=== PATIENT | female | born 1950 | race African-American/Black ===

== ENCOUNTER 2017-04-23 22:00 | Observation (INO) ==
--- NOTE | 2017-04-23 22:14 | Emergency Department Note ---
Disposition Clinical Impression: Near syncope, JORGE L (acute kidney injury) Nausea & vomiting Qualifiers: Vomiting type: unspecified Vomiting Intractability: unspecified Qualified Code( s): R11.2 - Nausea with vomiting, unspecified Disposition: Admitted As Inpatient Condition: Fair Forms: ED Satisfaction Letter Time of Disposition: 22:53 Nausea/Vomiting/Diarrhea HPI - General Chief complaint: ED Nausea/Vomiting/Diarrhea Stated complaint: Nausea, Weakness Time Seen by Provider: 04/23/17 22:06 Source: patient Mode of arrival: ambulatory Limitations: no limitations Nursing Notes Reviewed: Yes Vital Signs Reviewed: Yes - History of Present Illness HPI Narrative: 66-year-old who had a kidney surgery in [place] couple days ago who is had nausea vomiting this morning he became diaphoretic and near syncope and lay on the floor. Patient was seen here earlier had an evaluation of showed some acute kidney injury and was sent home one home and was feeling worse so she came back. 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 Description of emesis: food contents Associated Abdominal Pain: Yes If pain, Location of pain: diffuse Severity: moderate Quality: cramping Consistency: intermittent Improves with: nothing Worsens with: nonthing Context: other (Kidney surgery has not felt well over the last day or so.) - Related Data Home Medications Medication Instructions Recorded Confirmed Naproxen Sodium [Aleve] 220 mg PO TID PRN 09/27/16 09/27/16 Previous Rx's Medication Instructions Recorded HYDROcodone/Acet 5/325 mg [[place] 1 tab PO Q6H PRN #20 tab 09/27/16 5-325 mg] Ondansetron ODT [Zofran ODT] 4 mg SL Q6HR PRN #20 tab.rapdis 09/27/16 Phenazopyridine HCl [Pyridium] 200 mg PO TIDAC PRN #20 tab 09/27/16 Ciprofloxacin [Cipro] 500 mg PO BID #14 tablet 09/30/16 OxyCODONE/APAP 5/325 [Percocet 1 each PO Q6HR PRN #20 tablet 09/30/16 5/325 MG] HYDROcodone/Acet 5/325 mg [[place] 1 tab PO Q6H PRN #8 tab 11/30/16 5-325 mg] cephALEXin [Keflex] 500 mg PO TID #21 capsule 11/30/16 Allergies Allergy/AdvReac Type Severity Reaction Status Date / Time ketorolac [From Toradol] AdvReac Vomiting Verified 10/04/16 01:00 All systems ED: reviewed and negative except as stated. Constitutional: Denies: fever, chills, weakness, weight change Eyes: Denies: eye pain, eye discharge, vision change ENT ED: Denies: ear pain, throat pain, dental pain, hearing loss, epistaxis, congestion, dysphagia Cardiovascular: Denies: chest pain, palpitations, dyspnea on exertion, edema, syncope Respiratory: Denies: cough, dyspnea, wheezes, hemoptysis, stridor Gastrointestinal: Reports: abdominal pain, nausea, vomiting. Denies: diarrhea, constipation, hematemesis, melena, hematochezia Genitourinary: Denies: dysuria, frequency, hematuria, discharge Musculoskeletal: Denies: back pain, neck pain, arthralgia, myalgia Integumentary: Denies: rash, abrasion, lesions Neurological: Denies: headache, weakness, numbness, paresthesias, confusion, abnormal gait, vertigo Psychiatric: Denies: anxiety, depression, suicidal thoughts, homicidal thoughts , auditory hallucinations, visual hallucinations Endocrine: Denies: fatigue Hematological/Lymphatic: Denies: easy bleeding, easy bruising Allergic/Immunologic: Denies: facial swelling, urticaria Past Medical History - Past Medical History Medical history: Reports: atrial fibrillation, hypertension, kidney stones Surgical history: Reports: other Psychiatric history: Reports: no psych history 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 - Social History Smoking Status: Never smoker Smokeless Tobacco Status: No Alcohol use: Reports: none Drug use: Reports: none Physical Exam - General Limitations: no limitations General appearance: alert, in no apparent distress - Head Head exam: atraumatic, normocephalic, normal inspection - Eye Eye exam: Present: normal appearance, PERRL, EOMI - ENT ENT exam: normal exam, normal oropharynx, mucous membranes moist - Neck Neck exam: Present: normal inspection, full ROM, trachea midline - Chest Chest inspection: Present: normal inspection, symmetric chest wall rise - Respiratory Respiratory exam: Present: normal lung sounds bilaterally - Cardiovascular Cardiovascular exam: Present: regular rate, normal rhythm, normal heart sounds - Abdominal Exam Abdominal exam: Present: soft, tenderness. Absent: distention, guarding, rebound, rigidity - Extremities Exam Extremities exam: Present: normal inspection, full ROM. Absent: tenderness, pedal edema - Expanded Lower Extremity Exam Neurovascular/Tendon exam: Absent: motor deficit, sensory deficit, tendon deficit Gait: not tested/not observed - Back Exam Back exam: Present: normal inspection, full ROM. Absent: tenderness - Neurological Exam Neurological exam: Present: alert, oriented X3 - Psychiatric Psychiatric exam: Present: normal affect, normal mood - Skin Skin exam: Present: warm, dry, intact, normal color Course - Reevaluation(s) Reevaluation #1: 66-year-old female who has a history of nausea vomiting and near syncope. Patient was seen earlier today and discharged home come back with worsening symptoms. Time: 22:51 - Consultations Consultation #1: Discussed with , admit. Time: 22:53 Vital Signs Temperature 98.9 F 04/23/17 22:01 Pulse Rate 87 04/23/17 22:01 Respiratory Rate 16 04/23/17 22:01 Blood Pressure 139/80 04/23/17 22:01 O2 Sat by Pulse Oximetry 97 04/23/17 22:01 Temperature 98.9 F 04/23/17 22:01 Pulse Rate 87 04/23/17 22:01 Respiratory Rate 16 04/23/17 22:01 Blood Pressure 139/80 04/23/17 22:01 O2 Sat by Pulse Oximetry 97 04/23/17 22:01 Oxygen Delivery Oxygen Delivery Room Air
[2017-04-23] MEDS ORDERED: Ondansetron 4 MG/2 ML VIAL IVP ONE (23:13)
[2017-04-23] MEDS: 0.9 % Sodium Chloride 1,000 ML IVC SCH (23:18)
[2017-04-24] MEDS: 0.9 % Sodium Chloride 1,000 ML IVC SCH ×2 (01:57→10:15)
[2017-04-24] MEDS ORDERED: Naloxone 0.4 MG/ML INJ IVP PRN (02:58)
[2017-04-24] MEDS ORDERED: Acetaminophen 325 MG TABLET PO PRN (02:58)
[2017-04-24] MEDS ORDERED: *HR* Promethazine 25 MG/ML VIAL IVP PRN (02:58)
[2017-04-24] MEDS ORDERED: Ondansetron 4 MG/2 ML VIAL IVP PRN ×2 (02:58→10:13)
[2017-04-24] MEDS ORDERED: 0.9 % Sodium Chloride 1,000 ML IVC SCH (03:00)
--- NOTE | 2017-04-24 03:04 | Internal Med History&Physical ---
Date of Encounter: 04/23/17 Time of Encounter: 22:30 Assessment and Plan (1) Near syncope Current visit: Yes Status: Acute will place the pt into Tele for observation Her near syncope seems to most likely due to vaso vagal reaction However pt mentioned she had h/o arrhythmias, so will put her on Tele check serial troponin, so far negative trop reviewed EKG - Showed NSR, No ST T changes noticed. No acute ischemia changes noticed will get 2 D Echo in AM IV hydration (2) Nausea & vomiting Current visit: Yes Status: Acute Possible viral GE no abx needed IV hydration symptomatic and supportive care Qualifiers: Vomiting type: unspecified Vomiting Intractability: intractable Qualified Code(s): R11.2 - Nausea with vomiting, unspecified (3) JORGE L (acute kidney injury) Current visit: Yes Status: Acute Slightly elevated Cr.. Pre renal will give IV fluids avoid nephro toxic meds (4) History of ureter stent Current visit: No Status: Acute recent renal procedure with ureter stent placement stable and clean incision need out pt f/u with urology Internal Medicine - H&P: HPI Chief complaint: near syncope Admitted From: Emergency Dept Plans for Post Hospital Care: Home History of present illness: Ms. Quiroz is a 66 year old female with knwon PMH of Cardiac arrythamias, Renal calculi, for which she recently had Renal procedure and Left ureter stent placed in, now she presented to ER this afternoon with intractable nausea and vomiting, also she almost passed out once this morning. She did have near syncopal episode after attempting to have a bowel movement after being constipated for a couple of days. The patient states she felt very diaphoretic and weak so she laid on the ground. She also c/o intractable nausea and vomiting since this morning, unable to hold any thing down. Denied any sick contacts. Denied any similar symptoms in the family. Past Med Surg Social Fam HX - Past Medical History Medical history: atrial fibrillation, hypertension, kidney stones Psychiatric history: no psych history - Past Surgical History Surgical History: other - Social History Smoking Status: Never smoker Smokeless Tobacco Status: No Alcohol use: none Drug use: none - Family History Mother Adopted: [place]: Meme Quiroz Family Member Ethnicity: Non- Living Status: Age at : 55 Cause of : hodgkins disease Hx Family Cardiac Disorders: No Hx Family Respiratory Disorders: No Hx Family Cancer: Yes Hx Family GI Disorders: No Hx Family Genitourinary Disorders: No Hx Family Endocrine Disorder: No Internal Medicine - H&P: Meds HYDROcodone/Acet 5/325 mg [[place] 5-325 mg] 1 tab PO Q6H PRN #20 tab 09/27/16 [Rx ] Naproxen Sodium [Aleve] 220 mg PO TID PRN 09/27/16 [History] Ondansetron ODT [Zofran ODT] 4 mg SL Q6HR PRN #20 tab.rapdis 09/27/16 [Rx] Phenazopyridine HCl [Pyridium] 200 mg PO TIDAC PRN #20 tab 09/27/16 [Rx] Ciprofloxacin [Cipro] 500 mg PO BID #14 tablet 09/30/16 [Rx] HYDROcodone/Acet 5/325 mg [[place] 5-325 mg] 1 tab PO Q6H PRN #8 tab 11/30/16 [Rx] cephALEXin [Keflex] 500 mg PO TID #21 capsule 11/30/16 [Rx] Lisinopril/Hydrochlorothiazide [Zestoretic 10-12.5 mg Tablet] 20 mg PO DAILY [History] OxyCODONE/APAP 5/325 [Percocet 5/325 MG] 1 each PO Q8HR PRN 04/24/17 [History] 3 Allergy/AdvReac Type Severity Reaction Status Date / Time ketorolac [From Toradol] AdvReac Vomiting Verified 10/04/16 01:00 All Systems PM: A 10-system review of systems was performed and is negative for pertinent findings except as documented above in the HPI. Review of systems: All the systems are reviewed everything is benign except the systems and symptoms I mentioned in the history of present illness - Constitutional Vitals: Temp Pulse Resp BP Pulse Ox 99.5 F 76 12 108/73 96 04/23/17 23:44 04/23/17 23:44 04/23/17 23:44 04/23/17 23:44 04/23/17 23:44 General appearance: Present: A&O X 3, no acute distress - Head Head exam: Present: atraumatic, normal inspection - Neck Neck exam general surgery: Present: supple - Respiratory Respiratory exam: Present: CTAB. Absent: accessory muscle use, rales, rhonchi, wheezes - Cardiovascular Cardiovascular exam: Present: RRR, +S1, +S2. Absent: diastolic murmur, gallop, rubs, systolic murmur - GI/Abdominal GI/Abdominal exam: Present: normal bowel sounds, soft, tenderness (around the recent inisions area). Absent: rebound, rigid Additional comments: clean incisions noticed - Extremities Exam Extremities exam: Absent: calf tenderness, pedal edema, tenderness - Back Exam Back exam: Absent: CVA tenderness (L), CVA tenderness (R) - Neurological Exam Neurological exam: Present: alert, oriented X3 - Psychiatric Psychiatric exam: Present: normal affect, normal mood - Skin Skin exam: Absent: rash
[2017-04-24] MEDS: *HR* Morphine 2 MG/ML SYRINGE IVP PRN ×4 (03:17→20:40)
[2017-04-24 07:12] LABS: BUN/Creatinine Ratio 10 (6-26); Blood Urea Nitrogen 11 mg/dL (7-20); Calcium 8.7 mg/dL (8.6-10.8); Carbon Dioxide 27 mEq/L (19-29); Chloride 107 mEq/L (98-109); Chol/HDL Ratio 2.4 (0-4.9); Cholesterol 151 mg/dL (< 200); Glucose 86 mg/dL (70-99); HDL Cholesterol 63 mg/dL (40-59); LDL Cholesterol,Calculated 70 mg/dL (0-99); Osmolality,Calculated 291 (280-300); Potassium 3.3 mEq/L (3.5-4.5); Sodium 141 mEq/L (136-145); Triglycerides 88 mg/dL (< 150); eGFR For African Americans > 60 (> 60); eGFR For Non-African Americans 50 (> 60)
--- NOTE | 2017-04-24 10:12 | Internal Med Progress Note ---
<Markus Baeza - Last Filed: 04/24/17 10:02> Date of Encounter: 04/24/17 Time of Encounter: 09:45 - Assessment and plan (1) Near syncope Current Visit: Yes Status: Acute Assessment and plan: Patient near-syncope likely result of vasovagal response and dehydration given decreased by mouth in the last few days. EKG was negative and no arrhythmias have been seen on telemetry so far. Serial troponins were negative Will obtain echocardiogram Continue patient on IV hydration (2) Nausea & vomiting Current Visit: Yes Status: Acute Assessment and plan: Nausea and vomiting likely secondary to patient left-sided hydronephrosis and recent kidney procedure Patient states nausea vomiting has been going on for 8 months and likely coincides with duration of hydronephrosis as she has passed multiple stones We will continue IV fluids Symptomatic and supportive care with scheduled Phenergan, when necessary Zofran and when necessary Reglan Qualifiers: Vomiting type: unspecified Vomiting Intractability: intractable Qualified Code(s): R11.2 - Nausea with vomiting, unspecified (3) JORGE L (acute kidney injury) Current Visit: Yes Status: Acute Assessment and plan: Prerenal Likely due to dehydration with decreased by mouth intake over the last several days Slightly elevated Cr., But improving with IV fluids Continue IV fluids and will monitor renal function daily avoid nephro toxic meds (4) History of ureter stent Current Visit: No Status: Acute Assessment and plan: recent renal procedure with ureter stent placement on 04/21/17 stable and clean incisions need out pt f/u with urology - Subjective Interval history: Patient reports she continues to be nauseous though does achieve moderate control with Zofran. She states nausea has been ongoing for about 8 months and in the same timeframe described having lower left abdominal pain. She denies any significant problems with her bowel movements denies blood or melena. She reports that immediately prior to her surgery on Monday, the day of her surgery , and the day after she had very limited to no by mouth intake. - Constitutional Vitals: Temp Pulse Resp BP Pulse Ox 98.4 F 70 16 99/63 95 04/24/17 07:00 04/24/17 07:00 04/24/17 07:00 04/24/17 07:00 04/24/17 07:00 General appearance: Present: A&O X 3, no acute distress Exam: General: Cooperative, pleasant, no acute distress, alert and oriented 3, answers questions appropriately HEENT: Normocephalic, atraumatic, neck supple, trachea midline, Conjunctiva pink , sclera anicteric, oral mucosa moist, no orophargeal erythema or exudates Respiratory: No accessory muscle usage, clear to auscultation bilaterally, no wheezes/rhonchi/rales appreciated Cardiovascular: Regular rate and rhythm, S1 and S2 present, no murmurs/rubs/ gallops/clicks appreciated GI/abdominal: Nondistended, diffuse tenderness to palpation, increased tenderness and left lower quadrant, 3 laparoscopic surgical scars present all sealed with no induration or erythema surrounding, soft, normal bowel sounds, no peritoneal signs Extremities: No calf tenderness, noncyanotic, no pedal edema appreciated, warm, lower extremity pulses palpable and symmetrical Neurological: Alert and oriented 3, no facial droop, no focal deficits Skin: Dry, intact, normal color Internal Medicine: Result - Labs CBC & Chem 7: 04/24/17 06:02 Labs: BMP 04/24/17 06:02 Sodium 141 Potassium 3.3 L Chloride 107 Carbon Dioxide 27 BUN 11 Creatinine 1.09 Glucose 86 Calcium 8.7 Cardiac Enzymes 04/24/17 Range/Units 06:02 Troponin I 0.01 (0-0.03) ng/mL Consult Discharge Plan - Plan Referrals: Larissa Harris MD [Primary Care Provider] - <Pola Cade H - Last Filed: 04/24/17 10:46> Date of Encounter: 04/24/17 - Constitutional Vitals: Temp Pulse Resp BP Pulse Ox 98.4 F 70 16 99/63 95 04/24/17 07:00 04/24/17 07:00 04/24/17 07:00 04/24/17 07:00 04/24/17 07:00 Internal Medicine: Result - Labs CBC & Chem 7: 04/24/17 06:02 Labs: BMP 04/24/17 06:02 Sodium 141 Potassium 3.3 L Chloride 107 Carbon Dioxide 27 BUN 11 Creatinine 1.09 Glucose 86 Calcium 8.7 Cardiac Enzymes 04/24/17 Range/Units 06:02 Troponin I 0.01 (0-0.03) ng/mL - Attending Attestation Intractable nausea and vomiting probably related to left hydronephrosis and history of surgical procedure with stent placement Possible UTI Start Rocephin, send urine culture Hypokalemia, replete as needed Dehydration improving on IV fluids I examined this patient and my medical decision-making was reviewed with the Resident Physician. I agree with the documented findings, disposition and treatment plan as described except to the extent set forth below.
[2017-04-24] MEDS ORDERED: Metoclopramide 10 MG/2 ML VIAL IVP PRN (10:13)
[2017-04-24] MEDS ORDERED: Metoclopramide 20 MG in 0.9 % Sodium Chloride 50 ML IVPB SCH (10:15)
[2017-04-24] MEDS: cefTRIAXone 2,000 MG in Water for inj. (sterile) 20 ML IVP SCH (10:51)
[2017-04-24] MEDS: *HR* Promethazine 25 MG/ML VIAL IVP SCH ×2 (10:51→17:10)
[2017-04-24] MEDS ORDERED: Ondansetron 4 MG/2 ML VIAL IVP SCH (16:00)
[2017-04-24] MEDS: *HR* HYDROcodone/Acet 5/325 mg TABLET PO PRN ×2 (18:08→22:47)
[2017-04-24] MEDS ORDERED: Ondansetron ODT 4 MG TAB.RAPDIS SL PRN (20:52)
[2017-04-25] MEDS: *HR* Morphine 2 MG/ML SYRINGE IVP PRN (00:41)
[2017-04-25] MEDS: *HR* HYDROcodone/Acet 5/325 mg TABLET PO PRN ×2 (04:49→12:59)
[2017-04-25] MEDS: 0.9 % Sodium Chloride 1,000 ML IVC SCH ×2 (04:52→13:00)
[2017-04-25 05:06] LABS: Basophils % 0.9 %; Eosinophils # 0.2 K/mcL (0.0-0.6); Eosinophils % 3.6 %; Hematocrit 35.3 % (35.3-44.9); Hemoglobin 10.9 g/dL (11.5-15.4); Immature Granulocytes % 0.2 % (0-4); Lymphocytes # 2.4 K/mcL (0.6-4.6); Lymphocytes % 51.3 %; Mean Corpuscular HGB Conc 30.9 g/dL (31.6-35.5); Mean Corpuscular Hemoglobin 28.4 pg (28.0-33.3); Mean Corpuscular Volume 91.9 fL (83.0-100.0); Mean Platelet Volume 9.2 fL (9.4-12.4); Monocytes # 0.5 K/mcL (0.0-1.3); Monocytes % 10.7 %; Neutrophils # 1.6 K/mcL (1.6-8.9); Platelet Count 272 K/mcL (140-400); Red Blood Count 3.84 M/mcL (3.82-4.97); Red Cell Distribution Width 14.2 % (11.5-14.5); Segmented Neutrophils % 33.3 %
[2017-04-25 05:09] LABS: BUN/Creatinine Ratio 13 (6-26); Blood Urea Nitrogen 13 mg/dL (7-20); Calcium 8.5 mg/dL (8.6-10.8); Carbon Dioxide 26 mEq/L (19-29); Chloride 108 mEq/L (98-109); Glucose 98 mg/dL (70-99); Osmolality,Calculated 294 (280-300); Potassium 3.9 mEq/L (3.5-4.5); Sodium 142 mEq/L (136-145); eGFR For African Americans > 60 (> 60); eGFR For Non-African Americans 54 (> 60)
--- NOTE | 2017-04-25 07:26 | Internal Med Progress Note ---
Date of Encounter: 04/25/17 Time of Encounter: 10:01 - Assessment and plan (1) JORGE L (acute kidney injury) Current Visit: Yes Status: Acute Assessment and plan: Prerenal Likely due to dehydration with decreased by mouth intake over the last several days Slightly elevated Cr. but has improved almost back to normal , Has improved with IV fluids avoid nephro toxic meds (2) Near syncope Current Visit: Yes Status: Acute Assessment and plan: Patient near-syncope likely result of vasovagal response and dehydration given decreased by mouth in the last few days. EKG was negative and no arrhythmias have been seen on telemetry so far. Serial troponins were negative Echo came back with no new findings and did have an EF of 60% but there was Mild LV Diastolic Dysfunction Most likely was due to vasovagal and pt is now doing better so will DC home with PCP f/u (3) Nausea & vomiting Current Visit: Yes Status: Acute Assessment and plan: Nausea and vomiting likely secondary to patient left-sided hydronephrosis and recent kidney procedure Patient states nausea vomiting has been going on for 8 months and likely coincides with duration of hydronephrosis as she has passed multiple stones Will send home with phenergan perscription as well as set up GI outpatient appointment through PCP. Will contact PCP. Qualifiers: Vomiting type: unspecified Vomiting Intractability: intractable Qualified Code(s): R11.2 - Nausea with vomiting, unspecified (4) History of ureter stent Current Visit: No Status: Acute Assessment and plan: recent renal procedure with ureter stent placement on 04/21/17 stable and clean incisions need out pt f/u with urology (5) UTI (urinary tract infection) Current Visit: Yes Status: Resolved Assessment and plan: Started on Rocephin yesterday based off of UA. After reviewing will DC Rocephin as this most likley is due to a dirty catch. Will have pt f/u with UA at PCP to be sure it is not worsening. Urine was sent for culture. - Subjective Interval history: Pt reports she is feeling much better today and is no longer having sycopal events or any lightheadedness. She is no longer nauseous and hasn't had any emesis since being on the new meds. She is still having good bm's. She is now able to eat and keep po foods down as well as fluids. She does feel well today and does feel well enough to go home. - Constitutional Vitals: Temp Pulse Resp BP Pulse Ox 97.7 F 66 17 103/67 97 04/25/17 04:13 04/25/17 04:13 04/25/17 04:13 04/25/17 04:13 04/25/17 04:13 General appearance: Present: A&O X 3, no acute distress - Head Head exam: Present: atraumatic, normocephalic - Eye Eye exam: Present: PERRL, conjuntiva pink, sclera anicteric Pupils: Present: PERRL - Neck Neck exam general surgery: Present: supple, trachea midline. Absent: lymphadenopathy - Respiratory Respiratory exam: Present: CTAB. Absent: accessory muscle use, rales, rhonchi, wheezes - Cardiovascular Cardiovascular exam: Present: RRR, +S1, +S2. Absent: diastolic murmur, gallop, rubs, systolic murmur - GI/Abdominal GI/Abdominal exam: Present: normal bowel sounds, soft, no peritoneal signs. Absent: distended, tenderness Additional comments: Surgical scars on abdomen are not warm with no drainage and seem to be healing well is no signs of infection. - Extremities Exam Extremities exam: Present: warm, radial pulses palpable and symmetrical. Absent : calf tenderness, cyanotic, pedal edema - Neurological Exam Neurological exam: Present: alert, CN II-XII intact, oriented X3, no focal deficits. Absent: pronater drift, facial droop, speech deficit - Skin Skin exam: Present: dry, intact Internal Medicine: Result - Labs CBC & Chem 7: 04/25/17 04:19 04/25/17 04:19 Labs: Short CBC 04/25/17 Range/Units 04:19 WBC 4.7 (4.3-11.1) K/mcL Hgb 10.9 L (11.5-15.4) g/dL Hct 35.3 (35.3-44.9) % Plt Count 272 (140-400) K/mcL Neutrophils # 1.6 (1.6-8.9) K/mcL BMP 04/25/17 04:19 Sodium 142 Potassium 3.9 Chloride 108 Carbon Dioxide 26 BUN 13 Creatinine 1.03 Glucose 98 Calcium 8.5 L Cardiac Enzymes 04/24/17 Range/Units 11:56 Troponin I 0.01 (0-0.03) ng/mL - Impressions Impressions Echocardiogram 04/24/17 06:30 Impressions: LVEF 60-65%. Normal LV chamber size, wall thickness and function. Mild left ventricular diastolic dysfunction. Normal right ventricular structure and function. No evidence of pulmonary hypertension. No significant valvular dysfunction. Left Ventricular Wall Motion: Rest Echo Findings All wall segments showed normal motion. Findings: Study Quality * Technically adequate exam. ECG Findings * Normal sinus rhythm. Left Ventricle * LVEF 60-65%. * Normal LV chamber size, wall thickness and function. * Mild left ventricular diastolic dysfunction. Right Ventricle * Normal right ventricular structure and function. Left Atrium * Moderately dilated left atrium. Right Atrium * Mildly dilated right atrium. Aortic Valve * Aortic valve not well visualized. * No aortic regurgitation. * No aortic stenosis. Mitral Valve * Normal mitral valve structure and function. * No mitral regurgitation. * No mitral stenosis. Tricuspid Valve * Normal tricuspid valve structure and function. * Trace tricuspid regurgitation. * No evidence of pulmonary hypertension. Pulmonic Valve * Pulmonic valve not well visualized. Aorta * Normally sized aortic root. Pericardium * The pericardium appears normal. IVC * Normal IVC dimensions and inspiratory collapse. Pulmonary Artery * Normal visualized portions of the main pulmonary artery. Consult Discharge Plan - Plan Referrals: Jemima Alfaro [Advanced Practice Nurse] - 05/03/17 11:00 am
--- NOTE | 2017-04-25 10:23 | Electrocardiograph Report ---
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
[2017-04-25] MEDS: cefTRIAXone 2,000 MG in Water for inj. (sterile) 20 ML IVP SCH (10:55)
[2017-04-25 11:35] VITALS: BP 115/69
--- NOTE | 2017-04-25 12:47 | Discharge Summary ---
<Albin Bergman - Last Filed: 04/25/17 12:44> Date of Encounter: 04/25/17 Time of Encounter: 12:45 - Discharge Diagnosis (1) JORGE L (acute kidney injury) Priority: Secondary Status: Acute (2) Near syncope Priority: Primary Status: Acute (3) Nausea & vomiting Priority: Primary Status: Chronic Qualifiers: Vomiting type: unspecified Vomiting Intractability: intractable Qualified Code(s): R11.2 - Nausea with vomiting, unspecified (4) History of ureter stent Priority: Primary Status: Acute (5) UTI (urinary tract infection) Priority: Secondary Status: Resolved Qualifiers: Urinary tract infection type: acute cystitis Hematuria presence: with hematuria Qualified Code(s): N30.01 - Acute cystitis with hematuria - Discharge Medications Prescriptions: Oxybutynin [Ditropan] 5 mg PO TID #90 tablet Home Medications: Lisinopril/Hydrochlorothiazide [Zestoretic 10-12.5 mg Tablet] 20 mg PO DAILY [History] Promethazine [Phenergan] 25 mg PO Q12H PRN 04/24/17 [History] Acetaminophen [Tylenol] 650 mg PO Q6HR PRN tablet 04/25/17 [Rx] Oxybutynin [Ditropan] 5 mg PO TID #90 tablet 04/25/17 [Rx] Allergies/Adverse Reactions: 3 Allergy/AdvReac Type Severity Reaction Status Date / Time ketorolac [From Toradol] AdvReac Vomiting Verified 10/04/16 01:00 Procedures/tests Complete & Pending: Procedures Performed prior 72 hours Category Date Time Status EV echocardiogram Routine Y 04/24/17 06:30 Completed - Notes to Outpatient Provider Set up GI consultation for Chronic Nausea and Vomiting as well as Colonoscopy to be done due to extensive family hx and never previously had one. Date of admission: 04/23/17 23:06 Primary care physician: Larissa Harris Discharging clinician: Albin Bergman Anticipated date of discharge: 04/25/17 - Patient Status Disposition: Home, Self-Care Condition: Good Functional capacity at discharge: independent ambulation Overall status at discharge: patient is back to baseline - Discharge Instructions Instructions: Urinary Tract Infection in Women (DC), Acute Nausea and Vomiting (GEN) Follow Up With: Jemima Alfaro [Advanced Practice Nurse] - 05/03/17 11:00 am Additional Instructions: Return to Emergency Dept if you have a syncopal event again or continue to have worsening abdominal pain or nausea or vomiting as re-evaluation will be needed. Also followup with your primary care physician about a GI consultation for colonoscopy as well as your chronic nausea and vomiting. Continue with your normally prescribed medications. - Diet and Activity Diet: advance to your usual diet Interval History: Pt is doing well today she is still having the LLQ pain but says it is better. She is able to take food and fluids po and has tolerated them well. Still mild Nausea but no vomiting but the phenergran is working well. Echo came back with no acute findings for the syncope. Pt has no new pain or any other complaints and wants to go home. Hospital course: Ms. Quiroz is a 66 year old female who presented to the ED for syncope. PT recently had a renal procedure and left ureter stent placed on 04/21/17 prior to admission. She did well after surgery except for nausea and decreased po intake. She was having a bowel movement when she felt light headed and nearly passed out and had chronic intractable nausea and vomiting. ED evaluated her and felt admission was necessary. She was placed on Tele for observation. She had no hx of arrhythmias and there were none seen during her stay. Serial troponins were negative adn EKG showed NSR, no ST, T changes noticed ad no acute ischemia changes noticed. 2D echocardiogram was done which showed EF of 60% and mild LV Diastolic Dysfunction. Also during her stay they noticed her UA showed WBC's and Leukoesterase as well as blood so due to her kidney pathology they treated her with 1 dose of rocephin. After evaluating her and there being no dysuria we stopped the rocephin because this was most likely due to a dirty urine specimen and was normal kris contaminated. We did place her on scheduled phenergan for her nausea which did help. She was also fluid resuscitated while here to where he dehydration was alleviated. We contacted her PCP and updated him of her progress and a recommendation for GI consultation due to the intractable nausea and vomiting as well as a colonscopy due to extensive family hx of colon cancer. PCP said they would set this up. Pt is discharged home with oxybutinin per PCP's request and she already has RX' s for phenergan and zofran and tylenol. She is being dc'ed with the diagnosis of pre-syncope most likley due to vasovagal response and dehydration. Pt agrees with this plan and so does the PCP. Pt is discharged home in stable condition. - Time Spent with Patient Total time spent providing and/or coordinating discharge services: Less than 30 minutes - Constitutional Vitals: Temp Pulse Resp BP Pulse Ox 98.3 F 69 18 115/69 98 04/25/17 11:27 04/25/17 11:27 04/25/17 11:27 04/25/17 11:27 04/25/17 11:27 General appearance: Present: A&O X 3, no acute distress - Head Head exam: Present: atraumatic, normocephalic - Eye Eye exam: Present: PERRL, conjuntiva pink, sclera anicteric Pupils: Present: PERRL - Respiratory Respiratory exam: Present: CTAB. Absent: accessory muscle use, rales, rhonchi, wheezes - Cardiovascular Cardiovascular exam: Present: RRR, +S1, +S2. Absent: diastolic murmur, gallop, rubs, systolic murmur - GI/Abdominal GI/Abdominal exam: Present: normal bowel sounds, soft, tenderness (chronic LLQ pain on palpation, unchaged from previous exams), no peritoneal signs. Absent: distended Additional comments: 2 healing wounds on the abdomen from recent laparoscopic surgery that are healing well, with no erythema, warmth, or drainage or any other signs of infection. - Extremities Exam Extremities exam: Present: warm, radial pulses palpable and symmetrical. Absent : calf tenderness, cyanotic, pedal edema - Neurological Exam Neurological exam: Present: CN II-XII intact, oriented X3, no focal deficits. Absent: pronater drift, facial droop, speech deficit - Skin Skin exam: Present: dry, intact <Gordillo-Bezwada,Jones - Last Filed: 04/25/17 15:40> Date of Encounter: 04/25/17 Procedures/tests Complete & Pending: Procedures Performed prior 72 hours Category Date Time Status EV echocardiogram Routine Y 04/24/17 06:30 Completed Date of admission: 04/23/17 23:06 Primary care physician: Larissa Harris [facility] course: Ms. Quiroz is a 66 year old female - Time Spent with Patient Total time spent providing and/or coordinating discharge services: - Constitutional Vitals: Temp Pulse Resp BP Pulse Ox 98.3 F 69 18 115/69 98 04/25/17 11:27 04/25/17 11:27 04/25/17 11:27 04/25/17 11:27 04/25/17 11:27 - Attending Attestation I examined this patient and my medical decision-making was reviewed with the Resident Physician. I agree with the documented findings, disposition and treatment plan as described except to the extent set forth below.
== END 2017-04-25 13:56 | disposition home or self-care (01) ==
LOC: 2ANU 22:00 → EMEROO 22:00 → 2ANU 23:35
PROVIDERS: ADMIT Family Medicine; ATTEND Internal Medicine